=== PATIENT | male | born 1975 | race Asian ===

== ENCOUNTER 2016-04-17 00:25 | Emergency (ER) | payer BC ==
[2016-04-17 00:43] VITALS: BMI 27.8
--- NOTE | 2016-04-17 00:51 | PDOC ---
History of Present Illness - General History Source: Patient, Family, Old Records Exam Limitations: No Limitations - History of Present Illness Initial Comments: 04/17/16 01:10 The patient is a 40 year old male with a past medical history of HTN and GERD, who presents to the ED for further evaluation of a headache since this afternoon and high blood pressure since Friday. The patient reports that his headache is located in the temporal region. The patient notes that his headache is non-radiating and is a 6/10. The patient states that he too 500 mg of tylenol twice today with minimal alleviation of pain. The patient states that he ran out of his blood pressure medication on Friday and has high blood pressure since. The patient notes that he filled his normal prescription today and took a double dose of his normal blood pressure medication. The patient denies fever, chills, and sweats. The patient denies nausea, vomiting, and diarrhea. The patient denies chest pain, cough, and shortness of breath. PCP: Dr. Dameon Massey [phone] PAST MEDICAL HISTORY: HTN, GERD PAST SURGICAL HISTORY: No significant history reported FAMILY HISTORY: No pertinent history reported SOCIAL HISTORY: None reported MEDICATIONS: Reviewed ALLERGIES: As per nursing notes <Dany Barrios - Last Filed: 04/17/16 01:10> - General History Source: Patient <Joshua Leung - Last Filed: 04/17/16 02:55> - General Chief Complaint: Blood Pressure Problem Stated Complaint: HIGH BP Time Seen by Provider: 04/17/16 00:42 Past History <Dany Barrios - Last Filed: 04/17/16 01:10> - Past Medical History GI Disorders: Yes (GERD) HTN: Yes - Psycho/Social/Smoking Cessation Hx Suicidal Ideation: No Smoking History: Never smoked Hx Alcohol Use: No Drug/Substance Use Hx: No Substance Use Type: None <Joshua Leung - Last Filed: 04/17/16 02:55> - Past Medical History Allergies/Adverse Reactions: Allergies Allergy/AdvReac Type Severity Reaction Status Date / Time No Known Allergies Allergy Verified 04/17/16 00:41 Home Medications: Ambulatory Orders Losartan Potassium [Cozaar -] 25 mg PO DAILY 07/30/15 Ranitidine [Zantac -] 150 mg PO DAILY 07/30/15 Review of Systems - Review of Systems Able to Perform ROS?: Yes Comments:: 04/17/16 01:11 CONSTITUTIONAL: Absent: fever, chills, diaphoresis, generalized weakness, malaise, loss of appetite HEENT: Absent: rhinorrhea, nasal congestion, throat pain, throat swelling, difficulty swallowing, mouth swelling, ear pain, eye pain, visual Changes CARDIOVASCULAR: Present: High blood pressure Absent: chest pain, syncope, palpitations, irregular heart rate, lightheadedness , peripheral edema RESPIRATORY: Absent: cough, shortness of breath, dyspnea with exertion, orthopnea, wheezing, stridor, hemoptysis GASTROINTESTINAL: Absent: abdominal pain, abdominal distension, nausea, vomiting, diarrhea, constipation, melena, hematochezia GENITOURINARY: Absent: dysuria, frequency, urgency, hesitancy, hematuria, flank pain, genital pain MUSCULOSKELETAL: Absent: myalgia, arthralgia, joint swelling SKIN: Absent: rash, itching, pallor HEMATOLOGIC/IMMUNOLOGIC: Absent: easy bleeding, easy bruising, lymphadenopathy, frequent infections ENDOCRINE: Absent: unexplained weight gain, unexplained weight loss, heat intolerance, cold intolerance NEUROLOGIC: Present: Headache Absent: focal weakness or paresthesias, dizziness, unsteady gait, seizure, mental status changes, bladder or bowel incontinence PSYCHIATRIC: Absent: anxiety, depression, suicidal or homicidal ideation, hallucinations. <Dany Barrios - Last Filed: 04/17/16 01:10> *Physical Exam - Vital Signs Last Vital Signs Temp Pulse Resp BP Pulse Ox 84 18 153/103 99 04/17/16 00:41 04/17/16 00:41 04/17/16 00:41 04/17/16 00:41 - Physical Exam Comments: 04/17/16 01:11 GENERAL: Well developed, well nourished. Awake and alert. In no acute distress. HEENT: Normocephalic, atraumatic. PERRLA, EOMI. No conjunctival pallor. Sclera are non- icteric. Moist mucous membranes. Oropharynx is clear. NECK: Supple. Full ROM. No JVD. Carotid pulses 2+ and symmetric, without bruits. No thyromegaly. No lymphadenopathy. CARDIOVASCULAR: Regular rate and rhythm. No murmurs, rubs, or gallops. Distal pulses are 2+ and symmetric. PULMONARY: No evidence of respiratory distress. Lungs clear to auscultation bilaterally. No wheezing, rales or rhonchi. ABDOMINAL: Soft. Non-tender. Non-distended. No rebound or guarding. No organomegaly. Normoactive bowel sounds. MUSCULOSKELETAL Normal range of motion at all joints. No bony deformities or tenderness. No CVA tenderness. EXTREMITIES: No cyanosis. No clubbing. No edema. No calf tenderness. SKIN: Warm and dry. Normal capillary refill. No rashes. No jaundice. NEUROLOGICAL: Alert, awake, appropriate. Cranial nerves 2-12 intact. No deficits to light touch and temperature in face, upper extremities and lower extremities. No motor deficits in the in face, upper extremities and lower extremities. Normoreflexic in the upper and lower extremities. Normal speech. Toes are downgoing bilaterally. Gait is normal without ataxia. PSYCHIATRIC: Cooperative. Good eye contact. Appropriate mood and affect. <Dany Barrios - Last Filed: 04/17/16 01:10> - Vital Signs Last Vital Signs Temp Pulse Resp BP Pulse Ox 84 18 153/103 99 04/17/16 00:41 04/17/16 00:41 04/17/16 00:41 04/17/16 00:41 <Joshua Leung - Last Filed: 04/17/16 02:55> ED Treatment Course - LABORATORY CBC & Chemistry Diagram: 04/17/16 01:05 04/17/16 01:05 <Dany Barrios - Last Filed: 04/17/16 01:10> - LABORATORY CBC & Chemistry Diagram: 04/17/16 01:05 04/17/16 01:05 <Joshua Leung - Last Filed: 04/17/16 02:55> Medical Decision Making - Medical Decision Making 04/17/16 02:52 Dr. Leung: The scribe's documentation has been prepared under my direction and personally reviewed by me in its entirery. I confirm that the note above accurately reflects all work, treatment, procedures, and medical decision making performed by me. BP 138/89. Pt feels better after treatment. Advised to follow up with his pcp tomorrow. Return to ER as needed <Joshua Leung - Last Filed: 04/17/16 02:55> *DC/Admit/Observation/Transfer - Attestations Scribe Attestion: 04/17/16 01:11 Documentation prepared by Dany Barrios, acting as medical claims representative for Joshua Leung MD. <Dany Barrios - Last Filed: 04/17/16 01:10> - Discharge Dispostion Admit: No <Joshua Leung - Last Filed: 04/17/16 02:55> Diagnosis at time of Disposition: Headache Qualifiers: Headache type: unspecified Headache chronicity pattern: unspecified pattern Intractability: not intractable Qualified Code(s): R51 - Headache Hypertension Qualifiers: Hypertension type: essential hypertension Qualified Code(s): I10 - Essential ( primary) hypertension - Discharge Dispostion Disposition: HOME Condition at time of disposition: Stable - Referrals Referrals: Dameon Massey MD [Primary Care Provider] - - Patient Instructions Printed Discharge Instructions: DI for High Blood Pressure, DI for Headache Additional Instructions: Please call and possibly see your primary care doctor tomorrow. Continue taking your medication as directed.
[2016-04-17] MEDS ORDERED: morphine CARPU-JECT 2 MG/1 ML DISP.SYRIN IVPUSH ONE (00:52)
[2016-04-17] MEDS ORDERED: ONDANSETRON 4 MG/2 ML VIAL IVPUSH STA (00:52)
[2016-04-17] MEDS ORDERED: morphine CARPU-JECT 4 MG/1 ML DISP.SYRIN ONE (01:06)
[2016-04-17] MEDS ORDERED: ONDANSETRON 4 MG/2 ML VIAL ONE (01:07)
[2016-04-17 01:18] LABS: BASOPHIL 0.8 % (0-2.0); EOSINOPHIL 2.7 % (0-4.5); MCH 29.1 pg (25.7-33.7); MCHC 34.6 g/dl (32.0-35.9); MEAN CELL VOLUME 84.1 fl (80-96); MEAN PLT VOLUME 7.3 fl (7.5-11.1); NEUTROPHILS 48.2 % (42.8-82.8); PLATELET COUNT 256 K/MM3 (134-434); RDW 12.8 % (11.9-15.9); WHITE BLOOD COUNT 8.8 K/mm3 (4.0-10.0)
[2016-04-17 01:42] LABS: GLUCOSE,RANDOM 88 mg/dL (74-106); TROPONIN I < 0.02 ng/ml (0.00-0.05)
[2016-04-17 01:43] LABS: ALBUMIN 3.9 g/dl (3.4-5.0); ANION GAP 10 (8-16); CALCIUM 8.9 mg/dL (8.5-10.1); CO2 27 mmol/L (21-32); TOT PROT 7.3 g/dl (6.4-8.2)
[2016-04-17 01:44] LABS: ALK PHOS 71 U/L (45-117); BILIRUBIN,TOTAL 0.3 mg/dL (0.2-1.0); SGOT/AST 22 U/L (15-37); SGPT/ALT 43 U/L (12-78)
[2016-04-17] MEDS ORDERED: hydrALAZINE HCL 20 MG/ML VIAL IVPUSH ONE (02:10)
[2016-04-17] MEDS ORDERED: hydrALAZINE HCL 20 MG/ML VIAL ONE (02:13)
[2016-04-17 02:41] VITALS: BP 138/89; PULSE 71
== END 2016-04-17 03:04 | disposition home or self-care (01) ==
LOC: JER 00:25
PROC: 3E033GC Introduction of Other Therapeutic Substance into Peripheral Vein, Percutaneous Approach (ICD-10-PCS; principal; 2016-04-17)
PROC: 3E033NZ Introduction of Analgesics, Hypnotics, Sedatives into Peripheral Vein, Percutaneous Approach (ICD-10-PCS; 2016-04-17)
DX: I10 Essential (primary) hypertension (principal); R51 Headache; K21.9 Gastro-esophageal reflux disease without esophagitis
CPT/HCPCS: 36415; 80053; 82550; 82553; 84484; 85025; 99282-25